=== PATIENT | female | born 1975 | race Caucasian/White ===

== ENCOUNTER → 2020-11-05 | Outpatient (CLI) | payer BC ==
--- NOTE | 2020-11-06 12:40 | Diagnostic Imaging Report ---
Indication: Routine screening. Comparison is made with prior mammogram 07/24/2014. 2-D and 3-D bilateral screening mammography was performed with CAD. Both breasts are heterogeneously dense, limiting the sensitivity of mammography. No mass or malignant appearing microcalcifications are seen. Axillae are unremarkable. IMPRESSION: BI-RADS Category 1 No mammographic features suspicious for malignancy are identified. ACR BI-RADS Category 1: Negative. Result letter will be mailed to the patient. Note: At least 10% of breast cancer is not imaged by mammography. Dictated by: Dictated on workstation # [id number]
== END ==
LOC: RAD 09:45
PROVIDERS: ATTEND Obstetrics & Gynecology
DX: Z12.31 Encounter for screening mammogram for malignant neoplasm of breast (principal)
CPT/HCPCS: 77063; 77067

== ENCOUNTER 2020-12-15 05:34 | Outpatient (RCR) | payer BC ==
[~2020-12-15] VITALS: Ht 167.7 cm; Wt 80.9 kg
[~2020-12-15 05:34] MED LIST: MULT-141 PO
== END 2020-12-15 09:50 | disposition home or self-care (01) ==
LOC: PREOP 05:34
PROVIDERS: ATTEND Obstetrics & Gynecology
DX: Z01.812 Encounter for preprocedural laboratory examination (principal); R32 Unspecified urinary incontinence; Z20.822 Contact with and (suspected) exposure to COVID-19
CPT/HCPCS: 87635

== ENCOUNTER 2020-12-17 06:05 | Day surgery (SDC) | payer BC ==
[2020-12-17] VITALS (12 sets, daily range): BP systolic 77–136; BP diastolic 29–86
[~2020-12-17] VITALS: Ht 167.7 cm; Wt 80.9 kg
[2020-12-17] MEDS ORDERED: ceFAZolin INJECTION 1,000 MG in WATER (STERILE) FOR INJECTION 10 ML IV ONE (06:30)
[2020-12-17] MEDS ORDERED: SEVOFLURANE (ULTANE) 15 ML INHAL SOLN ONE ×8 (06:37→09:24)
[2020-12-17] MEDS ORDERED: fentaNYL INJECTION 100 MCG/2 ML AMP ONE (06:37)
[2020-12-17] MEDS ORDERED: LIDOCAINE PF 2% 5 ML (XYLOCAINE) VIAL ONE (06:37)
[2020-12-17] MEDS ORDERED: proPOfol 200 MG/20 ML (DIPRIVAN) VIAL IV ONE (06:37)
[2020-12-17] MEDS ORDERED: ONDANSETRON 4 MG/2 ML (SDV) Z0FRAN ONE (06:37)
[2020-12-17] MEDS ORDERED: ROCURONIUM 10 MG/ML 5 ML SYRINGE IV ONE (06:37)
[2020-12-17] MEDS ORDERED: MIDAZOLAM 2 MG/2 ML (VERSED) VIAL ONE (06:37)
[2020-12-17] MEDS ORDERED: LIDOCAINE/EPI 1%-1:200,000 (XYLOCAINE) 10 ML VIAL ONE (06:47)
[2020-12-17] MEDS ORDERED: ESTROGENS CONJ. CREAM 30 GM (PREMARIN) TUBE ONE (06:47)
[2020-12-17] MEDS ORDERED: ESTRADIOL VAGINAL CREAM 42.5 GM (ESTRACE) VG ONE (06:50)
[2020-12-17] MEDS: LACTATED RINGERS 1,000 ML IV PRN ×3 (06:51→09:50)
[2020-12-17 07:02] LABS: BASOPHILS % (AUTO) 1 % (0-10); EOSINOPHILS # (AUTO) 0.1 10^3/uL (0.0-0.3); EOSINOPHILS % (AUTO) 1 % (0-10); HEMATOCRIT 41 % (35-52); HEMOGLOBIN 13.2 g/dL (11.5-16.0); LYMPHOCYTES # (AUTO) 1.3 10^3/uL (1.0-4.0); LYMPHOCYTES % (AUTO) 36 % (12-44); MEAN CORPUSCULAR HEMOGLOBIN 29 pg (25-34); MEAN CORPUSCULAR HGB CONC 32 g/dL (32-36); MEAN CORPUSCULAR VOLUME 92 fL (80-99); MEAN PLATELET VOLUME 9.6 fL (9.0-12.2); MONOCYTES # (AUTO) 0.3 10^3/uL (0.0-1.0); MONOCYTES % (AUTO) 8 % (0-12); NEUTROPHILS % (AUTO) 54 % (42-75); PLATELET COUNT 206 10^3/uL (130-400); WHITE BLOOD COUNT 3.7 10^3/uL (4.3-11.0)
--- NOTE | 2020-12-17 07:24 | Progress Note-Post Operative ---
Post-Operative Progess Note Surgeon (s)/Lease Broker (s) Surgeon MEDHAT MONIQUE MD Lease Broker: Kanwal Pre-Operative Diagnosis Uterovaginal prolapse/stress urinary incontinence Post-Operative Diagnosis Same Procedure & Operative Findings Date of Procedure 12/17/20 Procedure Performed/Findings TLH with bilateral salpingectomy and with anterior and posterior vaginal repairs with enterocele repair and with Dr. Romero performing pubovaginal sling and cystoscopy Anesthesia Type GETA Estimated Blood Loss Estimated blood loss (mL): 250 cc Specimens/Packing Specimens Removed uterus and tubes Packing: kerlix in vagina MEDHAT MONIQUE MD Dec 17, 2020 07:24
--- NOTE | 2020-12-17 07:24 | Progress Note-Pre Operative ---
Pre-Operative Progress Note H&P Reviewed The H&P was reviewed, patient examined and no changes noted. Date Seen by Provider: Dec 17, 2020 Time Seen by Provider: 07:23 Date H&P Reviewed: Dec 17, 2020 Time H&P Reviewed: 07:23 Pre-Operative Diagnosis: Uterovaginal prolapse/stress urinary incontinence MEDHAT MONIQUE MD Dec 17, 2020 07:24
[2020-12-17] MEDS ORDERED: ESTROGENS CONJ INJECTION 25 MG in WATER (STERILE) FOR INJECTION 5 ML IV ONE (07:30)
[2020-12-17] MEDS ORDERED: D5 LR IV SOLUTION 1,000 ML IV SCH (07:30)
[2020-12-17] MEDS ORDERED: PROMETHAZINE INJ 25 MG/ML (PHENERGAN) AMP IM PRN (07:30)
[2020-12-17] MEDS ORDERED: BENZOCAINE/MENTHOL (DERMOPLAST) 60 ML CAN TP PRN (07:30)
[2020-12-17] MEDS ORDERED: fentaNYL INJECTION 100 MCG/2 ML AMP IVP PRN (07:30)
[2020-12-17] MEDS ORDERED: ONDANSETRON 4 MG/2 ML (SDV) Z0FRAN IVP PRN ×2 (07:30→10:00)
[2020-12-17] MEDS ORDERED: KETOROLAC 30 MG/ML VIAL IVP SCH (07:30)
--- NOTE | 2020-12-17 08:21 | Progress Note-Pre Operative ---
Pre-Operative Progress Note H&P Reviewed The H&P was reviewed, patient examined and no changes noted. Date Seen by Provider: Dec 17, 2020 Time Seen by Provider: 08:20 Date H&P Reviewed: Dec 17, 2020 Time H&P Reviewed: 08:20 Pre-Operative Diagnosis: DAYSI DE LOS SANTOS MD Dec 17, 2020 08:21
--- NOTE | 2020-12-17 08:22 | Progress Note-Post Operative ---
Post-Operative Progess Note Surgeon (s)/Senior Ui Software Engineer (s) Surgeon DAYSI HAYDEN MD Senior Ui Software Engineer: James MONIQUE Pre-Operative Diagnosis AWILDA Post-Operative Diagnosis SAME Procedure & Operative Findings Date of Procedure 12/17/20 Procedure Performed/Findings PVS AND CYSTOSCOPY Anesthesia Type GENERAL Estimated Blood Loss Estimated blood loss (mL): NEGLIGIBLE Specimens/Packing Specimens Removed NONE PackinGM ESTRACE VAGINAL PACK DAYSI HAYDEN MD Dec 17, 2020 08:22
[2020-12-17] MEDS ORDERED: HYDROmorphone 2 MG/ML VIAL (DILAUDID) ONE (09:00)
[2020-12-17] MEDS ORDERED: NEOSTIGMINE 3 MG/3 ML VIAL ONE (09:02)
[2020-12-17] MEDS ORDERED: GLYCOPYRROLATE 0.2 MG/ML (ROBINUL) 2 ML VIAL ONE ×2 (09:02→09:04)
[2020-12-17] MEDS ORDERED: morphine INJ 10 MG/ML 1ML (SYR OR VIAL) IVP ONE (10:00)
[2020-12-17] MEDS ORDERED: HYDROmorphone 2 MG/ML VIAL (DILAUDID) IV ONE (10:00)
--- NOTE | 2020-12-17 10:03 | OPERATIVE REPORT ---
DATE OF SERVICE: 12/17/2020 PREOPERATIVE DIAGNOSIS: On my part, stress urinary incontinence. POSTOPERATIVE DIAGNOSIS: On my part, stress urinary incontinence. OPERATION PERFORMED: Pubovaginal sling and cystoscopy. SURGEON: Daysi Hayden MD. MEDICAL BILLING AND CODING INSTRUCTOR: Galen Villar MD. ANESTHESIA: General. COMPLICATIONS: None. DESCRIPTION OF PROCEDURE: Under satisfactory general anesthesia and after Dr. Villar performed the first part of his surgery that he will dictate, I went ahead and inserted a Powell catheter draining clear urine. I passed the Desara I sling device on both sides using the described technique. The sling was sitting nicely under the mid urethra with no tension, no twist and passage of a curved hemostat easily between it and the underlying tissue. I removed the Powell catheter to perform cystoscopy to confirm the integrity of the bladder, ureteral orifices and urethra with no foreign body and presence of the sling under the mid urethra. I left the bladder at least half full, removed the cystoscope and performed a manual Valsalva maneuver that was negative. Reinserted the Powell catheter draining clear fluid. Estimated blood loss on my part negligible and Dr. Villar's procedure was the rest of his surgery that he will dictate. Job ID: [id number] DocumentID: [id number] Dictated Date: 12/17/2020 09:13:35 Bicycle Repair Technician Date: 12/17/2020 10:02:39 Dictated By: DAYSI HAYDEN MD
[2020-12-17] MEDS ORDERED: WATER (STERILE) FOR INJECTION 10 ML ONE (10:04)
[2020-12-17] MEDS ORDERED: ESTROGENS CONJ IV 25 MG/5 ML (PREMARIN) VIAL ONE (10:04)
--- NOTE | 2020-12-17 11:55 | OPERATIVE REPORT ---
DATE OF SERVICE: 12/17/2020 PREOPERATIVE DIAGNOSES: Uterovaginal prolapse and stress urinary incontinence. POSTOPERATIVE DIAGNOSES: Uterovaginal prolapse and stress urinary incontinence. OPERATIVE PROCEDURE: Total laparoscopic hysterectomy with bilateral salpingectomies followed by anterior and posterior vaginal repairs with enterocele repair and pubovaginal sling and cystoscopy by Dr. Pimentel. OPERATIVE DESCRIPTION: With the patient in the supine position under satisfactory general anesthesia, she was repositioned in the dorsal lithotomy position in the [facility] and prepped and draped in the usual fashion for abdominal and vaginal surgery with plan to use da Ariana assistance. Weighted speculum was placed in posterior fornix of vagina, cervix exposed and grasped anteriorly with single tooth tenaculum. Uterus was sounded to 9 cm with uterine sound. The cervix was then serially dilated with Juan dilators to accommodate a Sandy II manipulator was placed using a 6 mm x 8 cm uterine probe and a 30 mm colpotomy ring. It is noted that the cervix prolapsed just outside the introitus on exam prior to initiating the procedure. Sutures of #1 Vicryl were placed at 3 and 9 o'clock position of the cervix to affix the cervix to the manipulator. Powell catheter was placed in the urinary bladder. Tenaculum and speculum were removed from the vagina. The patient brought in low dorsal lithotomy position. A 12 mm incision was made 8 cm superior to the umbilicus in the midline. Veress needle was placed through that incision into the abdominal cavity. Correct placement confirmed with water drop test. The abdomen was insufflated with 2.4 liters of carbon dioxide, then the Veress needle was removed and a 12 mm Optiview laparoscopic port placed. Abdominal wall was transilluminated and ports of 8 mm were placed 8 cm lateral to the umbilicus at a level approximately 3 cm above the umbilicus. All three port sites were infiltrated with 0.5% lidocaine with epinephrine prior to incision. The patient was now placed in Trendelenburg allowing the bowel to spill out of the pelvis. The da Ariana column was advanced on to the patient and docked after first lysing adhesions of the omentum to the anterior midline. Those adhesions were taken down sharply and bluntly with minimal bleeding. The da Ariana column was now docked. Operative instrument placed in right and left lateral ports and I retired to the da Ariana console for the hysterectomy. At the console using the vessel sealer on the right and a bipolar fenestrated grasper on the left, the pelvis was first examined. Both ovaries were normal appearing. There were several follicular cysts on the left ovary. The appendix was identified. It was a normal vermiform appendix and left in situ. There was evidence of tubal sterilization bilaterally with the distal left fallopian tube surgically absent. The uterus was normal-appearing, somewhat mottled, but did not have any abnormal appearing areas in the pelvis. The procedure was initiated by elevating the right fallopian tube using the vessel sealer, the mesosalpinx was clamped, cauterized and divided across the length of the mesosalpinx to the uteroovarian pedicle, which was then clamped, cauterized and divided, salvaging the right ovary in the process. The dissection was carried across the round ligament down the broad ligament down on to the cardinal ligament. Same procedure performed on the left, allowing for conservation of both ovaries and eventually removal of the remaining portion of the fallopian tube bilaterally with the uterus. Anterior lower uterine segment peritoneum was now divided using a monopolar shear on the right place of the vessel sealer. The bladder was dissected down off the lower uterine segment and then colpotomy incision was started at 12 o'clock position onto the colpotomy ring. That incision was continued circumferentially until the entire colpotomy ring was exposed. With that done, the uterus was free, it was extracted through the vagina with the tubes still attached. Vaginal cuff was closed with two sutures of V-Loc barbed suture starting from the first on the right angle and continuing to the mid portion of the cuff and then reapproximating the peritoneum on to that side of the cuff with the last several stitches and then using the balance of that suture to support the ovary on to the stump of the round ligament. On the left side, the same procedure was performed as well elevating both ovaries above the pelvis, closing the vaginal cuff completely and reperitonealizing the cuff. Both ureters were seemed to peristalse before, during and after the initiation of all the dissection and it was confirmed again at this point. With the hysterectomy complete and the vaginal cuff closed, the procedure was terminated. The operative instruments were removed under direct vision as were the ports. The abdomen was evacuated of the insufflating gas in the process. There was no bleeding from the port sites. The skin incisions were stapled. The fascia at the supraumbilical incision was closed with [id number] suture of 2-0 Vicryl. The patient was now repositioned in dorsal lithotomy position for the vaginal portion of the surgery. Weighted speculum placed in posterior fornix of vagina. Basilia clamps were placed on the anterior vaginal wall and the vaginal wall was opened in the midline with Metzenbaum scissors. The bladder was carefully dissected off the muscularis of the vagina bilaterally back to the pubic rami and then the bladder was elevated into the pelvis. The endopelvic fascia was plicated with 2-0 Vicryl sutures, elevating the bladder and lengthening the urethra. At this point, Dr. Pimentel assumed care of the patient. I remained in to assist. Dr. Pimentel performed a pubovaginal sling and cystoscopy with normal findings and then left the Powell catheter to dependent drainage and I resumed care of the patient. Redundant anterior vaginal wall muscularis mucosa was removed sharply. The vaginal wall was then closed with a running locked suture of 3-0 Vicryl Rapide. Good support was evident and hemostasis was complete. The bladder was draining clear yellow urine at this point. Posterior repair was affected by placing Basilia clamps on the perineum and hymenal ring at 5 and 7 o'clock position, an inverted triangle of skin was removed from the perineal body and upright triangle from the posterior vaginal floor. The rectovaginal space was entered sharply and dissected bluntly to the apex of the vagina where it was explored. There was a small enterocele. This was reduced and plicated with two sutures of 2-0 Vicryl in a pursestring fashion to obliterate the enterocele and then the rectovaginal space was obliterated with additional sutures of 2-0 Vicryl and again additional suture of 2-0 Vicryl were used to restore the perineal body. The redundant posterior vaginal wall muscularis mucosa was removed sharply. The vaginal wall was closed with a running locked suture of 3-0 Vicryl Rapide, that closure was continued down to the hymenal ring and then down onto the perineal body, then back up subcutaneous to the hymenal ring where the suture was tied. Digital rectal exam confirmed no stricture or stenosis of the rectum and no sutures into or through the rectal mucosa. support was evident anteriorly and posteriorly and at the vaginal apex. There was no bleeding from the suture lines. The vaginal cuff was intact. The vagina was now filled with Estrace vaginal cream and a pack of Kerlix gauze was placed. Powell catheter was left to dependent drainage. Sponge and needle counts were correct on completion of the procedure. Estimated blood loss was around 250 mL. The patient tolerated the procedure well and was transferred to the recovery room in stable condition after being uneventfully awakened from her general anesthesia. Job ID: [id number] DocumentID: [id number] Dictated Date: 12/17/2020 09:39:21 Power House Control Room Operator Date: 12/17/2020 11:55:13 Dictated By: MEDHAT MONIQUE MD
[2020-12-17] MEDS: KETOROLAC 30 MG/ML VIAL IVP SCH ×2 (15:37→22:11)
[2020-12-17] MEDS: oxyCODONE/APAP 5/325MG (PERCOCET 5) TABLET PO PRN ×2 (18:03→23:45)
[2020-12-18] VITALS (8 sets, daily range): BP systolic 107–143; BP diastolic 54–88
[2020-12-18] MEDS: KETOROLAC 30 MG/ML VIAL IVP SCH (04:34)
--- NOTE | 2020-12-18 06:54 | Anesthesia-General Post-Op ---
General Patient Condition Mental Status/LOC: Same as Preop Cardiovascular: Satisfactory Nausea/Vomiting: Absent Respiratory: Satisfactory Pain: Controlled Complications: Absent Post Op Complications Complications None Follow Up Care/Instructions Patient Instructions None needed. Anesthesia/Patient Condition Patient Condition Patient is doing well, no complaints, stable vital signs, no apparent adverse anesthesia problems. No complications reported per nursing. KELLI VILLALTA CRNA Dec 18, 2020 06:54
[2020-12-18] MEDS: oxyCODONE/APAP 5/325MG (PERCOCET 5) TABLET PO PRN ×2 (08:11→12:59)
--- NOTE | 2020-12-18 08:42 | Progress Note ---
Standard Progress Note Progress Notes/Assess & Plan Date Seen by a Provider: Dec 18, 2020 Time Seen by a Provider: 08:41 Progress/Assessment & Plan This patient is without complaint. She is ambulating, she is voiding, she is tolerating oral intake well and has good pain control. Vital Signs Date Time Temp Pulse Resp B/P (MAP) Pulse Ox O2 Delivery O2 Flow Rate FiO2 12/18/20 04:25 37.2 70 18 107/54 (71) 97 Room Air 12/18/20 00:30 37.4 88 18 141/66 (91) 96 Room Air 12/17/20 20:00 37.1 73 18 136/71 (92) 96 Room Air 12/17/20 15:45 36.0 80 16 119/60 (79) 97 Room Air 12/17/20 11:45 36.0 61 18 132/71 (91) 98 Room Air 12/17/20 10:50 36.0 55 18 127/68 (87) 97 Room Air 12/17/20 10:35 Room Air 12/17/20 10:35 36.5 12 121/78 (92) 100 Room Air 12/17/20 10:30 9 112/75 (87) 100 Room Air 12/17/20 10:25 OxyMask 1 12/17/20 10:20 12 109/75 (86) 100 OxyMask 2 12/17/20 10:10 OxyMask 5 12/17/20 10:10 12 107/71 (83) 100 OxyMask 5 12/17/20 10:00 11 89/59 (69) 100 OxyMask 5 12/17/20 09:55 OxyMask 5 12/17/20 09:50 12 82/46 (58) 99 OxyMask 5 12/17/20 09:41 OxyMask 10 12/17/20 09:41 36.4 14 77/29 (45) 98 OxyMask 10 I & O 12/18/20 07:00 Intake Total 4520 ml Output Total 1095 ml Balance 3425 ml Vital signs are stable. Patient is afebrile. Physical exam is deferred as patient is up walking in the reeves during my visit Assessment and plan postoperative day #1 doing well. Plan will be for discharge home and follow-up in clinic providing bladder function is added Final Diagnosis Uterovaginal prolapse and stress urinary incontinence ENEIDA,MEDHAT G MD Dec 18, 2020 08:42
[2020-12-18] MEDS ORDERED: OXYC1TAB87 PO ×2 (08:43→08:45)
[2020-12-18] MEDS ORDERED: IBUP-1780 PO (08:43)
[2020-12-18] MEDS ORDERED: DCS100C PO (08:43)
--- NOTE | 2020-12-18 08:46 | Discharge Inst-Surgical ---
Discharge Inst-Surgical Depart Medication/Instructions New, Converted or Re-Newed RX: RX on Chart Consults/Follow Up Patient Instructions: As directed Orders & Referrals Follow Up Appt: Return to clinic on Tuesday, December 19, 2020 at 9:30 AM for staple removal Call to make follow up appt. for patient in 4 weeks. Activity: Rest for 24 hours, than as tolerated. Wound Care: May remove Band-Aid tomorrow. Replace as desired. Keep incisions clean and dry. Wash daily with soap and water. Please call in RX to patient pharmacy. Diet: As tolerated may shower or tub bathe as desired. No driving for 24 hours, no alcoholic beverages for 24 hours, and nothing per vagina (no tampons, douching, or intercourse) for 8 weeks. Patient to return to the clinic as soon as possible for: Temperature greater than 101F, Severe Pain, Foul discharge from incision or vagina, Excessive Bleeding (more than a period). Activity Activity as Tolerated: No Diet Discharge Diet: No Restrictions MEDHAT MONIQUE MD Dec 18, 2020 08:46
[2020-12-18] MEDS ORDERED: DOCUSATE SODIUM 100 MG (COLACE) CAP PO SCH (09:00)
[2020-12-18] MEDS: IBUPROFEN 800 MG (MOTRIN) TAB PO SCH ×2 (10:05→16:18)
[2020-12-18] MEDS ORDERED: ONDANSETRON 4 MG (ZOFRAN) ORAL DISSOLVE TAB PO PRN (15:45)
[2020-12-18] MEDS ORDERED: CIPR-226 PO (16:30)
[2020-12-18] MEDS ORDERED: ONDA8TAB13 PO (16:32)
== END 2020-12-18 18:00 | disposition home or self-care (01) ==
LOC: SDC 06:05 → WS 11:12 → SDC 12-18 18:00
PROVIDERS: ATTEND Obstetrics & Gynecology
DX: D25.1 Intramural leiomyoma of uterus (principal); N39.3 Stress incontinence (female) (male); N81.2 Incomplete uterovaginal prolapse; N88.8 Other specified noninflammatory disorders of cervix uteri; N83.8 Other noninflammatory disorders of ovary, fallopian tube and broad ligament; Z88.5 Allergy status to narcotic agent; Z80.3 Family history of malignant neoplasm of breast
CPT/HCPCS: 57260; 57288; 58571; 84703; 85025; 86850; 86900; 86901; 87081; 88307; C1771; 36415

== ENCOUNTER → 2022-01-21 | Outpatient (CLI) | payer BC ==
[~2022-01-21] MED LIST changes: +CIPR-226 PO; +DOCU-239 PO; +IBUP-1780 PO; +ONDA8TAB13 PO; +OXYC1TAB87 PO
--- NOTE | 2022-01-21 10:11 | Diagnostic Imaging Report ---
INDICATION: Routine screening. COMPARISON: 11/05/2020. TECHNIQUE: 2D and 3D bilateral screening mammography was performed with CAD. FINDINGS: Both breasts are heterogeneously dense, limiting the sensitivity of mammography. The parenchymal pattern is stable. No mass or malignant-appearing microcalcifications are seen. The axillae are unremarkable. IMPRESSION: No mammographic features suspicious for malignancy are identified. ACR BI-RADS Category 1: Negative. Result letter will be mailed to the patient. Note: At least 10% of breast cancer is not imaged by mammography. Dictated by: Dictated on workstation # [id number]
== END ==
LOC: RAD 07:45
PROVIDERS: ATTEND Obstetrics & Gynecology
DX: Z12.31 Encounter for screening mammogram for malignant neoplasm of breast (principal)
CPT/HCPCS: 77063; 77067